=== PATIENT | male | born 2000 | race Caucasian/White ===

== ENCOUNTER 2021-02-25 01:24 | Day surgery (SDC) | payer OTHER, SELFPAY ==
[2021-02-18 14:33] VITALS: BMI 55.7
[2021-02-25] VITALS (9 sets, daily range): BP systolic 149–181; BP diastolic 81–113; PULSE 90–99; RESP 16–24; TEMP 36.4–36.6; O2SAT 95–99
--- NOTE | 2021-02-25 08:23 | WPDHPUPDATE1 ---
History and Physical Update Update Date/Time: 02/25/21 08:23 History and Physical has been reviewed, including an updated exam of the patient. There are NO changes in the patient's condition. Risks, benefits, and alternatives have been discussed and questions answered. Patient agrees to proceed with procedure.
--- NOTE | 2021-02-25 08:23 | PM.IMHP ---
H&P: HPI History of Present Illness Date/Time: 02/25/21 08:23 Chief Complaint: lesion on palate PMFSH Social History Social History Smoking status: Never smoker Alcohol intake: never Substance use: never Living arrangements: with family Gender identity (if verbalized by the patient): Male Sexual Orientation (if Verbalized by the Patient): Straight or Heterosexual Spiritual care concerns: No Meds Home Medications and Allergies Home Medications Medication Instructions Recorded Confirmed Type No Home Medications 02/25/21 02/25/21 History Allergies Allergy/AdvReac Type Severity Reaction Status Date / Time diphenhydramine AdvReac MAD, Verified 02/25/21 08:00 [From Benadryl] ANGRY, IRRITABLE YOUNG CHILD Assessment and Plan Assessment and plan (1) Impacted teeth with abnormal position: Code(s): K01.1 - Impacted teeth Status: Acute Assessment and Plan: lesion on palate and impacted 1,16,17,32
[2021-02-25] MEDS: LACTATED RINGERS 1,000 ML 30 ML IV CONT ×2 (08:30→10:10)
--- NOTE | 2021-02-25 09:06 | WPDANESEPPF ---
Anes - Initial Pre Proc Eval Procedure: Operation Date: 02/25/21 09:30 Proposed Procedures p Extraction of Four Impacted [place] Teeth ,#One, Sixteen, Seventeen, Thirty Two, - Surjit Jimenez DMD s Biopsy of Lesion on Right Palate - Surjit Jimenez DMD Date/Time: 02/25/21 09:06 Surgeon: Surjit Jimenez DMD Pre Op Diagnosis: impacted teeth, lesion on palate Patient Data Age: 20 Gender: M Height: 1.8 m Weight: 181.44 kg Allergies Allergy/AdvReac Type Severity Reaction Status Date / Time diphenhydramine AdvReac MAD, Verified 02/25/21 08:00 [From Benadryl] ANGRY, IRRITABLE YOUNG CHILD Home Medications Medication Instructions Recorded Confirmed Type No Home Medications 02/25/21 02/25/21 History Patient hx anesthesia problems: none Family hx anesthesia problems: none PMFSH Past Medical History Medical History (Updated 02/25/21 @ 09:06 by Pj Griffin MD) Morbid obesity Surgical History Surgical History (Updated 02/25/21 @ 09:06 by Pj Griffin MD) Hx of tonsillectomy Social History Social History Smoking status: Never smoker Alcohol intake: never Substance use: never Living arrangements: with family Gender identity (if verbalized by the patient): Male Sexual Orientation (if Verbalized by the Patient): Straight or Heterosexual Spiritual care concerns: No Anes - Eval Final PreProcedure Day of Procedure 02/25/21 09:06 Patient weight: morbidly obese Heart: regular rate and rhythm Lungs: clear to auscultation Airway: Mallampati scale class III Neurological: alert and oriented Last oral intake: >/= 8 hours ASA classification: III Emergent: no Anesthetic plan: proceed Anesthesia type and monitoring: general ETT and standard monitoring Informed Consent: The patient's anesthetic plan and its attendant risks and benefits were discussed with the patient/family/POA. Questions were solicited and answers provided to the satisfaction of the patient/family/POA.
--- NOTE | 2021-02-25 10:07 | PM.OP ---
Procedure Note - Brief Procedure Note - Brief Date of procedure: 02/25/21 Pre-op diagnosis: impacted teeth, lesion on palate Surgeon: Surjit Jimenez, MANSOOR Preoperative diagnosis impacted teeth #[id number] and lesion on palate. postop diagnose same. procedure surgical removal of teeth #[id number] and removal of lesion. Estimated blood loss 5cc complications none Anesthesia general anesthesia and 8cc of 2% lidocaine with 100,000 epinephrine. Patient was encountered in the upper [employer] the anesthesia service to induce general anesthetic. Patient was draped in the usual manner for an intraoral surgical procedure. Local anesthetic administered. Oral cavity suctioned free of debris and throat pack was placed. Fifteen blade used to make a 3rd molar incision area of tooth number 1 [place] full-thickness flaps elevated the buckle. Bone overlying tooth 1. Was removed using elevator and rongeur and tooth 1. Was removed using elevator and forceps technique without complication. Second curetted free of debris and irrigated copious amount sterile saline. Attention was turned to 16. Which was extracted identical fashion. Attention turned their 17. Where the 3rd molar incision was made and full-thickness flaps elevated to the buccal. Buccal trough was created the tooth dissection and mesial distal halves and removed using elevator and forceps technique without complication. Socket curetted free of debris and [place] irrigated with copious amounts of sterile saline. Attention was turned to tooth number 32 which was extracted identical fashion. Attention was turned to the palate where the right palatal lesion was excised and sent for specimen. Oral cavity is suctioned free of debris and throat pack was removed. Care of the patient was turned to the anesthesia service who extubated the patient transferred to recovery in stable condition.
[2021-02-25] MEDS: LIDOCAINE 2%-EPI (FOR DENTAL BLOCK) 1.7 ML CARTRIDGE 6.8 ML INFILTRATE (10:17)
== END 2021-02-25 11:52 | disposition home or self-care (01) ==
PROVIDERS: Visit Provider Dentist
PROC: (CPT 41899; principal; 2021-02-25 09:30)
PROC: (CPT 20240; 2021-02-25 09:30)
DX: K01.1 Impacted teeth (principal); K13.70 Unspecified lesions of oral mucosa
CPT/HCPCS: 42104; D7240 ×4; A9270; J0330; J1100; J2250; J2405; J2704; J3010; J7120